=== PATIENT | male | born 1965 | race Caucasian/White ===

== ENCOUNTER → 2020-04-26 14:58 | Outpatient (CLI) | payer OTHER, SELFPAY ==
--- NOTE | ~2020-04-26 | MR_ITS ---
EXAMINATION: MR cervical spine wo con EXAM DATE: 04/26/2020 16:31 INDICATION: Cervicalgia, left-sided neck pain numbness burning and tingling. TECHNIQUE: Multi-sequential, multiplanar MR images of the cervical spine were obtained without contra st. Axial T2, axial T2 MERGE sequence. Sagittal T1, T2, T2 fat saturation images also obtained. Th ere is no prior study for comparison. FINDINGS: C4-5 facet joints are fused, partially fused vertebral bodies. Mild to moderate disc disea se at C6-7. The spinal cord signal intensity and intrinsic morphology is normal. Cervicomedullary magalie ction is normal in appearance. The vertebral bodies are aligned in the AP dimension. There are no reid picious marrow signal abnormalities. Paraspinal soft tissue is unremarkable. Level by level evaluation: C2-C3: Disc does not extend beyond the endplate margin. Uncovertebral joint arthropathy: None. Facet joint arthropathy: Mild bilateral. Neural foraminal stenosis: No stenosis. Central canal stenosis: No stenosis. C3-C4: Disc does not extend beyond the endplate margin. Uncovertebral joint arthropathy: Mild left. Facet joint arthropathy: Moderate bilateral. Neural foraminal stenosis: Moderate left, mild right. Central canal stenosis: No stenosis. C4-C5: This level is fused. Uncovertebral joint arthropathy: None. Facet joint arthropathy: Bulky right, but fused. Neural foraminal stenosis: Mild to moderate right. Central canal stenosis: No stenosis. C5-C6: There is a mild diffuse disc bulge. Uncovertebral joint arthropathy: Mild to moderate right, mild left. Facet joint arthropathy: Mild to moderate bilateral. Neural foraminal stenosis: No stenosis. Central canal stenosis: No stenosis. C6-C7: There is a mild to moderate diffuse disc bulge. Uncovertebral joint arthropathy: Severe left, moderate to severe right. Facet joint arthropathy: Mild to moderate bilateral. Neural foraminal stenosis: Severe left, mild to moderate right. Central canal stenosis: Mild to moderate. C7-T1: Disc does not extend beyond the endplate margin. Uncovertebral joint arthropathy: Mild left. Facet joint arthropathy: Mild bilateral. Neural foraminal stenosis: Mild left. Central canal stenosis: No stenosis. IMPRESSION: 1. C6-7 disc bulge, uncovertebral joint arthropathy causing severe left neural foraminal stenosis. 2. Otherwise overall mild to moderate cervical spondylosis. Reviewed, dictated and finalized at location B. L [employer]
== END ==
PROVIDERS: Visit Provider Orthopaedic Surgery
DX: R20.0 Anesthesia of skin (principal); M50.823 Other cervical disc disorders at C6-C7 level; M47.812 Spondylosis without myelopathy or radiculopathy, cervical region
CPT/HCPCS: 72141

== ENCOUNTER 2020-05-27 07:30 | Outpatient (RCR) | payer OTHER, SELFPAY ==
--- NOTE | 2020-04-01 14:01 | PTOPEVAL ---
Thank you for referring Milton Castrejon to [facility].? The patient is scheduled to be seen for therapy? 2 x/week for 5 weeks. Please review, sign, date and return this plan of care STACIA. I agree with and certify that the following plan of care is medically necessary. 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 Denies any injury that caused the change in symptoms. C/o numbness, burning and standing pain from left UE/hand to lower neck region. Prolonged sitting increases his symptoms. At his office he has a sit<> stand desk, but not at home. Changing position and stretching helps, but he reports decreased neck motion. Increased symptoms with neck ext. Pain will wake him at night. He has difficulty with driving activities. Reports decreased fine motor control due to loss of sensation of fingers. States the pain decreases but never completely goes away. He was performing a regular resistance program, but no isolated stretching. 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
--- NOTE | 2020-04-28 11:19 | PTOPEVAL ---
Thank you for referring Milton Castrejon to [facility].? Pt has been seen for 9 therapy visits to address neck and UE pain and symptoms. The patient is scheduled to be seen for therapy? 2 x/week for 4 weeks. Please review, sign, date and return this plan of care STACIA. I agree with and certify that the following plan of care is medically necessary. 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 He has been performing his HEP which he does feel has helped. Does feel like the nerve glides are helping. C/o numbness, burning, tingling pain from left UE/hand to lower neck region. Prolonged sitting and UE activities increases his symptoms. He cont to have difficulty with driving activities. Reports decreased fine motor control due to loss of sensation of fingers. Increased pain and symptoms with reaching and overhead activities. He has difficulty sleeping with increased pain. He did find his syptoms will improve if he stretches before bed and performed depression nerve glides. Pain Assessment Timing of Pain Assessment Timing of
--- NOTE | 2020-05-27 08:11 | PTOPEVAL ---
Thank you for referring Milton Castrejon to [facility].? Pt has received 16 therapy visits to address his neck and left UE radiating symptoms. He demonstrates normal neck motion and strength, improved tissue restriction and is indep with HEP and self-management techniques at home. He has achieved his therapy goals at this time. DC skilled therapy services at this time. Please review, sign, date and return this plan of care STACIA. I agree with and certify that the following plan of care is medically necessary. 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 He is taking tramadol to help manage his pain and symptoms. He is able to work longer before needing to adjust or stop the activities. He feels the neck motion is better with improved range. His finger remain numb. He feels his symptoms are tolerable now. He does have muscle tightness, but is no longer locked up. He has a visit with the surgeon next [facility]. When resistance training he does feel his muscles fatigue quicker. But he does feel no restrictions with daily lifting activities. Pain Assessment Timing of Pain Assessment Timing of Pain Assessment Re-assessment Pain Scale Pain Scale Used Numeric (1 - 10) Self Report Pain Assessment Bilateral Neck Reported Pain Level
== END 2020-05-31 08:00 | disposition home or self-care (01) ==
LOC: ANHPT 07:30
PROVIDERS: PCP Emergency Medicine; Visit Provider Orthopaedic Surgery
DX: M54.2 Cervicalgia (principal)
CPT/HCPCS: 97110; 97140; 97162

== ENCOUNTER 2020-06-03 17:02 | Outpatient (CLI) | payer OTHER, SELFPAY ==
--- NOTE | ~2020-06-03 | XR_ITS ---
EXAMINATION: XR chest 2V 06/03/2020 17:27 INDICATION: Preoperative testing. Hypogonadism. PROCEDURE: PA and lateral views of the chest COMPARISON: No prior studies for comparison. FINDINGS: The lungs are clear. The cardiomediastinal silhouette is within normal limits. There are no pleural effusions. There is no pneumothorax suspected. IMPRESSION: 1: NO ACUTE CARDIOPULMONARY DISEASE. Reviewed, dictated and finalized at location A. [employer]
[2020-06-03 17:22] LABS: Basophils Percent Auto 0.4 % (0.2-1.2); Eosinophils Absolute Auto 0.2 K/mm3 (0-0.3); Hematocrit 42.5 % (42.0-52.0); Hemoglobin 14.7 g/dL (14.0-18.0); Immature Granulocyte Absolute 0.03 K/mm3 (0.00-0.031); Immature Granulocyte Percent A 0.3 % (0-0.5); Lymphocytes Absolute Auto 1.93 K/mm3 (0.9-3.2); Lymphocytes Percent Auto 21.2 % (18.3-44.2); Mean Corpuscular HGB Conc 34.6 g/dl (32-36); Mean Corpuscular Volume 92.6 fl (80-100); Mean Platelet Volume 9.8 fl (7.4-10.4); Monocytes Absolute Auto 0.8 K/mm3 (0.1-0.6); Monocytes Percent Auto 9.1 % (2.6-8.5); Neutrophils Absolute Auto 6.1 K/mm3 (1.3-6.7); Platelet Count Result 264 k/mm3 (150-375); Red Blood Count 4.59 M/mm3 (4.6-6.20); Red Cell Distribution Width 12.5 % (11.5-14.5); White Blood Count 9.1 K/mm3 (4.5-10.0)
[2020-06-03 17:32] LABS: INR 0.9; Prothrombin Time 12.8 Seconds (11.1-14.7)
[2020-06-03 17:33] LABS: Partial Thromboplastin Time 25.9 SECONDS (22.3-36.8)
[2020-06-03 17:35] LABS: Alanine Aminotransferase 23 U/L (4-50); Albumin Level 4.5 g/dL (3.5-5.1); Alkaline Phosphatase 83 U/L (38-126); Anion Gap 8 mmol/L (8-16); Aspartate Amino Transferase 27 U/L (17-59); Bilirubin,Total 0.5 mg/dL (0.2-1.3); Blood Urea Nitrogen 24 mg/dL (9-20); Calcium 9.3 mg/dL (8.4-10.2); Carbon Dioxide 25 mmol/L (22-30); Chloride 102 mmol/L (98-107); Estimated Glomerular Filt Rate > 60; Glucose 99 mg/dL (75-110); Sodium 135 mmol/L (137-145)
== END 2020-06-03 17:03 | disposition home or self-care (01) ==
LOC: ANHLAB 17:08
DX: Z01.818 Encounter for other preprocedural examination (principal)
CPT/HCPCS: 36415; 71046; 80053; 85025; 85610; 85730

== ENCOUNTER 2020-06-04 08:50 | Outpatient (CLI) | payer OTHER, SELFPAY ==
--- NOTE | 2020-06-04 | ECG_ITS ---
Measurements Intervals [place] Rate: 70 P: 51 VA: 148 QRS: 43 QRSD: 86 T: 39 QT: 399 QTc: 433 Interpretive Statements SINUS RHYTHM NORMAL ECG Electronically Signed On 06-04-2020 11:04:23 ANALYTICAL RESEARCH PROGRAM MANAGER by Rudy Shields D.O.
== END 2020-06-04 08:51 | disposition home or self-care (01) ==
LOC: ANHCARD 08:52
DX: Z01.810 Encounter for preprocedural cardiovascular examination (principal)
CPT/HCPCS: 93005

== ENCOUNTER 2020-07-29 07:30 | Outpatient (RCR) | payer OTHER, SELFPAY ==
--- NOTE | 2020-07-11 15:57 | PTOPEVAL ---
Thank you for referring Milton Castrejon to [facility].? The patient is scheduled to be seen for therapy? 3 x/week for 3 weeks. Please review, sign, date and return this plan of care STACIA. I agree with and certify that the following plan of care is medically necessary. Referring Physician Date Attending Provider: Dr. Horacio Reyna, DO Physical Therapy Evaluation Diagnosis s/p cervical discectomy, fusion. Onset 06/16/20 Cause herniated disc Additional Evaluation Detail Reports he is on a 15# lifting restriction. ROM as tolerate f/u with MD on 08/01/20 He is taking only over the counter pain medication as needed. Subjective Information He reports he is able to Query Text:As Reported By Patient/ perform normal daily Family activities of seated or work activities. He has had a few GARCIA since the surgery. He c/o mild stiffness of then neck and shoulder region mostly in the morning. He c/o abnormal sensation of codi 1st 3 fingers that is not consistent. Neck and shoulder motions improve the radiating symptoms. He c/o increased tightness with prolonged sitting. He is able to sit for a few hours before he has increased pain. Denies any pain with driving. Reports only mild problems with sleeping. He is going to the gym for cardio and light UE resistance exercises. Pain Assessment Neck Reported Pain Level 1 Pain Description Radiating,Tightness Pain Frequency Intermittent Lowest Pain Intensity 0 Greatest Pain Intensity 1 Pain Aggravating Factors Prolonged Position,Sitting Pain Score Pain Score 1: Self Report Cervical and Lumbar ROM Cervical Flexion (0-60) 48 Query Text:Active in Degrees Cervical Extension (0-70) 50 Query Text:Active in Degrees Cervical Lateral Flexion Right (0-50) 22 Query Text:Active in Degrees Cervical Lateral Flexion Left (0-50) 22 Query Text:Active in Degrees Cervical Rotation Right (0-90) 54 Query Text:Active in Degrees Cervical Rotation Left (0-90) 54 Query Text:Passive in De
--- NOTE | 2020-07-29 08:13 | PTOPEVAL ---
Thank you for referring Milton Castrejon to [facility].? Gerhard has attended 9 therapy visits to address impairments related to his neck surgery. He has improved pain, improved neck motion, improved neck and UE/scapular strength and improved soft tissue restrictions. He is indep with his home program at this time. He has achieved all but 1 therapy goal at this time. Will D/C skilled therapy services at this time with Gerhard to continue with home program. Please review, sign, date and return this discharge summary STACIA. I agree with and certify that the following plan of care is medically necessary. Referring Physician Date Referring Provider: Horacio Reyna, DO Discharge Therapy Note Diagnosis s/p cervical discectomy and C6 -7 fusion. Onset 06/16/20 Cause herniated disc Additional Evaluation Detail Reports he is on a 15# lifting restriction. ROM as tolerate f/u with MD on 08/01/20 He is taking only over the counter pain medication as needed. Subjective Information He denies any pain at rest or Query Text:As Reported By Patient/ with activities. He is going Family to the gym and exercising without limitations. He will have an occasional GARCIA. He has limited stiffness and end range neck motions. Reports improved sensation of codi 1st 3 fingers with only slight abnormal senation at tome. Denies any problems with sleeping. He is able to look over his shoulder better when driving. He is going to the gym for cardio and light UE resistance exercises. Pain Assessment Pain Scale Used Numeric (1 - 10) Self Report Pain Assessment Neck Reported Pain Level 0 Pain Description Aching,Tightness Pain Frequency Acute,Intermittent Lowest Pain Intensity 0 Greatest Pain Intensity 1 Pain Aggravating Factors None Cervical and Lumbar ROM Cervical Flexion (0-60) 65 Query Text:Active in Degrees Cervical Extension (0-70) 58 Query Text:Active in Degrees Cervical Lateral Flexion Right (0-50) 32 Query Text:Active in Degrees Cervical Lateral Flexion Left (0-50) 32 Query Text:Active in Degrees Cervical Rotation Right (0-90) 70 Query Text:Active in Degrees Cervical Rotation Left (0-90) 70 Query Text:Passive in Degrees
== END 2020-07-29 12:07 | disposition home or self-care (01) ==
LOC: ANHPT 07:30
DX: Z98.1 Arthrodesis status (principal)
CPT/HCPCS: 97014; 97110; 97140; 97162; G0283